=== PATIENT | male | born 1985 | race American Indian/Alaskan Native ===

== ENCOUNTER 2017-03-04 02:30 | Emergency (ER) | payer SELFPAY ==
[2017-03-04 02:44] VITALS: BP 140/90
--- NOTE | 2017-03-04 04:26 | XRay Report ---
FINAL REPORT PROCEDURE: XR SHOULDER 2+V RT TECHNIQUE: Right shoulder radiographs including AP views in internal and external rotation and abduction. CPT 21242 HISTORY: shoulder pain/ swelling COMPARISON: No prior studies are available for comparison. FINDINGS: Fracture (s) and/or Dislocation(s): None . Joint space(s): Normal . Soft tissues: Normal . Bone mineralization: Normal . Foreign bodies: None . IMPRESSION: Normal Examination
== END 2017-03-04 04:50 | disposition left against medical advice (07) ==
LOC: ED 02:30
DX: M25.519 Pain in unspecified shoulder (principal); J45.909 Unspecified asthma, uncomplicated; F17.200 Nicotine dependence, unspecified, uncomplicated; Z53.21 Procedure and treatment not carried out due to patient leaving prior to being seen by health care provider

== ENCOUNTER 2021-03-14 17:52 | Emergency (ER) | payer SELFPAY ==
[2021-03-14 18:00] VITALS: BP 130/89
--- NOTE | 2021-03-14 19:29 | Emergency Department Report ---
ED General Adult HPI - General Chief complaint: Headache Stated complaint: pain in leg and head, Time Seen by Provider: 03/14/21 18:09 Source: patient Mode of arrival: Ambulatory Limitations: No Limitations - History of Present Illness Initial comments: 35-year-old male with a past medical history of asthma presents to the ER today with complaints of headache and a knot to his right hobbs area. Patient states that he started with, sharp, and tension type pain to his left parietal, /left temporal area. He states that it started 2 days ago. He also feels like there is something moving across the occipital aspect of his head. He states that he has had headaches in the past, and has had them in the parietal/temporal area his head before. He states that he is never been officially diagnosed with any migraines, cluster headaches with tension headaches. He has been taking BC powders which has been helping the headache. Patient also complains of a knot that he noticed today to the right hobbs area that has not been painful. He states that he is concerned that his symptoms could be related to a "blood clot". He also admits that he recently got discharged from [facility] today after being incarcerated for about 2 weeks and he has been under lots of stress as a result.. He denies any recent head injury or leg injury. He denies any neck pain, URI symptoms, cough, vision changes, slurred speech, fever, chills, focal weakness, numbness, tingling or any additional symptoms at this time. Complaint: Headache/Knot right leg -: days(s) (2) - Related Data Previous Rx's Medication Instructions Recorded Last Taken Type Ketorolac [Toradol] 10 mg PO Q6H PRN #20 tablet 03/14/21 Unknown Rx Allergies Allergy/AdvReac Type Severity Reaction Status Date / Time No Known Allergies Allergy Verified 03/14/21 17:55 ED Review of Systems ROS: Stated complaint: pain in leg and head, Other details as noted in HPI Comment: All other systems reviewed and negative Constitutional: denies: chills, fever Eyes: denies: eye pain, eye discharge, vision change ENT: denies: ear pain, throat pain, dental pain, hearing loss, epistaxis, congestion Respiratory: denies: cough, shortness of breath, SOB with exertion, SOB at rest, wheezing Cardiovascular: denies: chest pain, palpitations, dyspnea on exertion, edema, syncope, paroxysmal nocturnal dyspnea Gastrointestinal: denies: abdominal pain, nausea, vomiting, diarrhea, constipation, hematemesis, melena, hematochezia, other Genitourinary: denies: urgency, dysuria, frequency, hematuria, discharge, testicular pain, testicular mass Musculoskeletal: other (Knot to right anterior hobbs). denies: back pain, joint swelling, arthralgia Skin: denies: rash, lesions, change in color, change in hair/nails, pruritus Neurological: headache. denies: weakness, numbness, paresthesias, confusion, abnormal gait, vertigo Psychiatric: denies: anxiety, depression, auditory hallucinations, visual hallucinations, homicidal thoughts, suicidal thoughts Hematological/Lymphatic: denies: easy bleeding, easy bruising ED Past Medical Hx - Past Medical History Hx Asthma: Yes - Surgical History Additional Surgical History: Rt knee sx - Social History Smoking Status: Current Every Day Smoker Substance Use Type: None - Medications Home Medications: Home Medications Medication Instructions Recorded Confirmed Last Taken Type Ketorolac [Toradol] 10 mg PO Q6H PRN #20 tablet 03/14/21 Unknown Rx ED Physical Exam - General Limitations: No Limitations General appearance: alert, in no apparent distress - Head Head exam: Present: atraumatic, normocephalic, normal inspection, other (Mild tenderness to palpation to his left temporal, parietal scalp area without any swelling, erythema, bruising or deformity.) - Eye Eye exam: Present: normal appearance, PERRL, EOMI Pupils: Present: normal accommodation - ENT ENT exam: Present: normal exam, mucous membranes moist, TM's normal bilaterally - Neck Neck exam: Present: normal inspection, full ROM. Absent: tenderness - Respiratory Respiratory exam: Present: normal lung sounds bilaterally. Absent: respiratory distress, wheezes, rales, rhonchi, stridor - Cardiovascular Cardiovascular Exam: Present: regular rate, normal rhythm, normal heart sounds - Extremities Exam Extremities exam: Present: normal inspection, full ROM, normal capillary refill, other (Small nodular area noted to the medial aspect of the right chin proximally without any associated tenderness to palpation, erythema or bruising. Patient has no calf tenderness. No calf swelling.). Absent: tenderness, pedal edema, joint swelling, calf tenderness - Neurological Exam Neurological exam: Present: alert, oriented X3, CN II-XII intact, normal gait - Psychiatric Psychiatric exam: Present: normal affect, normal mood - Skin Skin exam: Present: intact ED Course Vital Signs 03/14/21 17:59 Temperature 97.8 F Pulse Rate 66 Respiratory 20 Rate Blood Pressure 130/89 O2 Sat by Pulse 100 Oximetry ED Medical Decision Making - Medical Decision Making The patient presented to the emergency department with a headache and "knot" to right leg. The patient is resting comfortably and, is alert, talkative, interactive and in no distress. He has been observed playing on his phone since arriving to ED. The patient appears well and in there is no signs of significant dehydration. The patient is neurologically intact, has a normal mental status, and is ambulatory in the ER. His history, exam, diagnostic testing and the patient's current condition does not suggest meningitis, stroke, sepsis, subarachnoid hemorrhage, intracranial bleeding, encephalitis, temporal arteritis or other significant pathology to warrant further testing, continued ED treatment, admission, neurological consultation or other specialist evaluation at this point. Also his leg exam does not suggest DVT, cellulitis, or abscess at this time. His vital signs are stable. Suspect tension headache and superficial skin nodule to his leg. The patient's condition is stable and appropriate for discharge. discussed suspected diagnosis and treatment plan with patient. He will be given referral formation to local primary care doctors. Patient expressed understanding of all instructions and agree with plan. The patient will pursue further outpatient evaluation with the primary care physician or other designated or consulting physician as indicated in the discharge instruction. Critical care attestation.: If time is entered above; I have spent that time in minutes in the direct care of this critically ill patient, excluding procedure time. ED Disposition Clinical Impression: Subcutaneous nodule of right lower leg, Tension headache Disposition: HOME / SELF CARE / HOMELESS Is pt being admited?: No Does the pt Need Aspirin: No Condition: Stable Instructions: Tension Headache, Adult, [id number] Additional Instructions: Take the toradol as prescribed to help with your headache. Follow up one of the primary care doctors listed on your discharge instructions. Return to the ER if your symptoms changes or worsens in any way. Prescriptions: Ketorolac [Toradol] 10 mg PO Q6H PRN #20 tablet PRN Reason: Pain Referrals: CHERRY COOK MD [Staff Physician] - 3-5 Days [facility] [Provider Group] - 3-5 Days Time of Disposition: 19:34
== END 2021-03-14 19:59 | disposition home or self-care (01) ==
LOC: ED 17:52
DX: R22.41 Localized swelling, mass and lump, right lower limb (principal); G44.209 Tension-type headache, unspecified, not intractable; J45.909 Unspecified asthma, uncomplicated; F17.200 Nicotine dependence, unspecified, uncomplicated; Z72.89 Other problems related to lifestyle; Z79.899 Other long term (current) drug therapy
CPT/HCPCS: 99282